=== PATIENT | female | born 1980 | race Caucasian/White ===

== ENCOUNTER 2017-01-21 18:59 | Observation (INO) | payer OTHER ==
[~2017-01-21] VITALS: Ht 165.1 cm; Wt 77.1 kg
[2017-01-21 20:40] LABS: HEMOGLOBIN 15.5 gm/dl (12.3-15.3); RED BLOOD COUNT 5.51 M/UL (4.00-5.10); WHITE BLOOD COUNT 9.8 K/UL (4.5-11.0)
[2017-01-21 20:58] LABS: BUN/CREATININE RATIO 25 (0-10)
[2017-01-22 07:47] LABS: HEMOGLOBIN 13.5 gm/dl (12.3-15.3); RED BLOOD COUNT 4.92 M/UL (4.00-5.10); WHITE BLOOD COUNT 4.8 K/UL (4.5-11.0)
[2017-01-22 08:13] LABS: BUN/CREATININE RATIO 16 (0-10)
[2017-01-22] MEDS ORDERED: NEURONTIN 300300 MG PO (11:05)
[2017-01-22] MEDS ORDERED: LEXAPRO10 MG PO (11:06)
[2017-01-22] MEDS ORDERED: KLONOPIN TAB 00.5 MG PO (11:06)
[2017-01-22] MEDS ORDERED: ADIPEX-P37.5 M1 PO (11:29)
== END 2017-01-22 20:05 | disposition home or self-care (01) ==
LOC: ER1 18:59 → ZEROF 01-22 00:23 → MED SURG 4 01-22 13:36
PROVIDERS: Emergency Medicine; ADMIT Internal Medicine
DX: R74.0 Nonspecific elevation of levels of transaminase and lactic acid dehydrogenase [LDH] (principal); E80.6 Other disorders of bilirubin metabolism; R11.2 Nausea with vomiting, unspecified; F41.1 Generalized anxiety disorder; F17.210 Nicotine dependence, cigarettes, uncomplicated; Z90.49 Acquired absence of other specified parts of digestive tract; Z79.899 Other long term (current) drug therapy; Z88.2 Allergy status to sulfonamides; Z80.0 Family history of malignant neoplasm of digestive organs
CPT/HCPCS: 36415; 74181; 80053; 80061; 80074; 81001; 82150; 83690; 84703; 85025; 96374; 96375; 96376; 99285; G0378; J2405; J2550; J7050; Q9962

== ENCOUNTER → 2022-04-30 | Outpatient (CLI) | payer OTHER ==
[~2022-04-30] MED LIST: ADIPEX-P37.5 M1 PO; COLACE 100MG C100 MG PO; IBUPROFEN600 MG PO; IBUPROFEN800 MG PO; KLONOPIN TAB 00.5 MG PO; LEXAPRO10 MG PO; NEURONTIN 300300 MG PO; NORCO 5-325 TA1 EACH PO; OMEPRAZOLE40 MG PO; TENUATE PO; VITAMIN D350000 UNIT PO
== END ==
LOC: EXRD 15:22
DX: M54.6 Pain in thoracic spine (principal)
CPT/HCPCS: 72070